=== PATIENT | male | born 1980 | race Caucasian/White ===

== ENCOUNTER → 2016-03-14 | Outpatient (CLI) | payer BC ==
[~2016-03-14] MED LIST: CIPR-255 PO; HYDR-5688 PO; METH10TA6 PO; PRLSR20 PO; PROP1TAB PO
--- NOTE | 2016-03-14 13:12 | DIAGNOSTIC IMAGING REPORT ---
ULTRASOUND RIGHT GROIN NONVASCULAR CLINICAL HISTORY: Right groin pain. COMPARISON STUDY: No priors. FINDINGS: Real-time grayscale sonography of the right groin is performed. There is a small and reducible fat-containing right inguinal hernia. There is no evidence of fluid or bowel within the hernia sac. No inguinal lymphadenopathy is seen. IMPRESSION: There is a small and reducible fat-containing right inguinal hernia. Electronically signed by: German Betancourt M.D. 03/14/2016 1:11 PM Dictated Date/Time: 03/14/2016 1:10 PM
--- NOTE | 2016-03-14 13:13 | DIAGNOSTIC IMAGING REPORT ---
SCROTAL ULTRASOUND CLINICAL HISTORY: Scrotal pain. COMPARISON STUDY: None. TECHNIQUE: Grayscale and color and duplex Doppler sonography of the scrotum was performed. FINDINGS: The right testis measures 4.2 x 2 x 2.7 cm and the left measures 3.8 x 1.7 x 2.5 cm. There is no testicular mass. Color flow within each testis is symmetric. There are small bilateral epididymal head cysts. There was a small left varicocele. There was no evidence of epididymitis. IMPRESSION: 1. No testicular mass. No evidence of testicular torsion. No evidence of epididymitis. 2. Small left varicocele. Electronically signed by: Yaw Kwan M.D. 03/14/2016 1:12 PM Dictated Date/Time: 03/14/2016 1:10 PM
== END | disposition home or self-care (01) ==
LOC: C.ULTRBC 12:22
PROVIDERS: ATTEND Nurse Practitioner Family
DX: R10.31 Right lower quadrant pain (principal); N50.82 Scrotal pain; N50.819 Testicular pain, unspecified

== ENCOUNTER → 2016-03-19 | Outpatient (CLI) | payer BC ==
[2016-03-19 11:44] LABS: THYROID STIMULATING HORMONE < 0.005 uIu/ml (0.300-4.500)
== END | disposition home or self-care (01) ==
LOC: C.LAB1850 09:45
PROVIDERS: ATTEND Internal Medicine Endocrinology, Diabetes & Metabolism
DX: E05.90 Thyrotoxicosis, unspecified without thyrotoxic crisis or storm (principal)

== ENCOUNTER → 2016-04-17 | Outpatient (CLI) | payer BC ==
[2016-04-17 12:39] LABS: THYROID STIMULATING HORMONE < 0.005 uIu/ml (0.300-4.500)
== END | disposition home or self-care (01) ==
LOC: C.LAB1850 11:15
PROVIDERS: ATTEND Internal Medicine Endocrinology, Diabetes & Metabolism
DX: E05.90 Thyrotoxicosis, unspecified without thyrotoxic crisis or storm (principal); E05.00 Thyrotoxicosis with diffuse goiter without thyrotoxic crisis or storm

== ENCOUNTER 2016-07-03 05:13 | Day surgery (SDC) | payer BC ==
[2016-06-18 13:13] VITALS: BMI 43.0
--- NOTE | 2016-06-18 13:41 | PAT Medication Instructions ---
Service Date June 18, 2016. Current Home Medication List Methimazole (Methimazole), 10 MG PO BID Omeprazole (Prilosec), 20 MG PO Q2D Propranolol (Inderal), 120 MG PO QAM Medication Instructions For Your Scheduled Surgery - Take the following medications the morning of surgery with a sip of water OTHERWISE NOTHING TO EAT OR DRINK AFTER MIDNIGHT: Methimazole (Methimazole), 10 MG PO BID Propranolol (Inderal), 120 MG PO QAM Omeprazole (Prilosec), 20 MG PO Q2D - Take the following medications as scheduled the night before surgery: Methimazole (Methimazole), 10 MG PO BID If you have any questions please call us at [phone] or [phone] or [phone]
[2016-06-18 14:50] LABS: BASO % 0.4 %; BASO ABS # 0.02 K/uL (0-0.2); COMPLETE YES; EOS % 3.3 %; HEMATOCRIT 43.8 % (42-52); IG% 0.2 %; LYMPH % 23.3 %; LYMPH ABS # 1.14 K/uL (1.2-3.4); MEAN CELL VOLUME 84.6 fL (80-100); MEAN CORPUSCULAR HEMOGLOBIN 29.3 pg (25-34); MEAN CORPUSCULAR HGB CONC 34.7 g/dl (32-36); MEAN PLATELET VOLUME 9.2 fL (7.4-10.4); MONO % 8.8 %; PLATELET COUNT 192 K/uL (130-400); RED BLOOD COUNT 5.18 M/uL (4.7-6.1); WHITE BLOOD COUNT 4.89 K/uL (4.8-10.8)
[2016-06-18 15:23] LABS: BUN/CREATININE RATIO 11.8 (10-20); CALCIUM 8.9 mg/dl (8.5-10.1); CREATININE 0.94 mg/dl (0.60-1.40); POTASSIUM 4.3 mmol/L (3.5-5.1)
[~2016-07-03] VITALS: Ht 188 cm; Wt 153.1 kg
[~2016-07-03 05:13] MED LIST changes: -CIPR-255 PO; -HYDR-5688 PO
[2016-07-03 05:38] VITALS: BP 143/74; PULSE 90; TEMP 36.6; O2SAT 96; Ht 188 cm; Wt 153.1 kg
[2016-07-03] MEDS ORDERED: CIPROFLOXACIN / D5W 400 MG IV SCH (06:00)
[2016-07-03] MEDS ORDERED: LACTATED RINGER'S 1000ML 1,000 ML IV SCH (06:00)
[2016-07-03] MEDS ORDERED: CEFAZOLIN 2000 MG/60 ML D5W IV SCH (06:00)
[2016-07-03] MEDS ORDERED: LIDOCAINE HCL 2% 2 ML VIAL (20MG/ML) ONE (06:24)
[2016-07-03] MEDS ORDERED: PROPOFOL IV EMULSION 10 MG/ML 20 ML VIAL IV ONE (06:24)
[2016-07-03] MEDS ORDERED: ROCURONIUM BROMIDE 10 MG/ML 5 ML VIAL ONE (06:24)
[2016-07-03] MEDS ORDERED: ONDANSETRON INJ 2 MG/ML 2 ML VIAL ONE ×2 (06:24→08:26)
[2016-07-03] MEDS ORDERED: DEXAMETHASONE SOD INJ 4 MG/ML VIAL ONE (06:24)
[2016-07-03] MEDS ORDERED: NEOSTIGMINE METHYLSULFATE 5 MG/5 ML SYR ONE (06:24)
[2016-07-03] MEDS ORDERED: GLYCOPYRROLATE INJ 0.2 MG/ML VIAL ONE ×2 (06:24→06:51)
[2016-07-03] MEDS ORDERED: MIDAZOLAM HCL 1 MG/ML 2ML VIAL ONE (06:25)
[2016-07-03] MEDS ORDERED: FENTANYL CITRATE INJ 50 MCG/1 ML 2 ML VIAL ONE ×3 (06:25→08:09)
--- NOTE | 2016-07-03 06:33 | History & Physical Bridge Note ---
H&P Re-Evaluation Bridge Note: I have examined the patient, reviewed the History & Physical and in the interval since the performance of the History & Physical I have noted the following changes of clinical significance: No changes noted
[2016-07-03] MEDS ORDERED: BUPIVACAINE/EPINEPHRINE 0.5% MPF 1:200,000 30 ML VIAL ONE (06:39)
[2016-07-03] MEDS ORDERED: SUCCINYLCHOLINE CHLORIDE 20 MG/ML 10 ML VIAL IV ONE (07:21)
[2016-07-03] MEDS ORDERED: PROMETHAZINE HCL INJ 6.25 MG in SODIUM CHLORIDE 0.9% 50ML 50 ML IV PRN (08:00)
[2016-07-03] MEDS ORDERED: ATROPINE SULFATE 0.1 MG/ML 5ML SYR IV PRN (08:00)
[2016-07-03] MEDS ORDERED: ONDANSETRON INJ 2 MG/ML 2 ML VIAL IV PRN ×2 (08:00→08:30)
[2016-07-03] MEDS ORDERED: EpHEDrine SULFATE INJ 50 MG/ML AMP IV PRN (08:00)
--- NOTE | 2016-07-03 08:16 | [facility] Operative Report ---
Operative Report Operative Date July 03, 2016. Pre-Operative Diagnosis Right inguinal hernia Post-Operative Diagnosis direct and indirect RIH Procedure(s) Performed open right inguinal hernia repair with mesh Surgeon Dr Bo Hernandez Assessment Technician Surgeon(s) Shoshana Kulkarni PA-C, Aly Herron PA-C Estimated Blood Loss 10ML Findings large direct and moderated sized indirect RIH Specimens NONE Anesthesia LMA Complication(s) None Disposition Recovery Room / PACU I attest to the content of the Intraoperative Record and any orders documented therein. Any exceptions are noted below.
[2016-07-03] MEDS ORDERED: SODIUM CHLORIDE 0.9% 1000ML 1,000 ML IV SCH (08:26)
[2016-07-03] MEDS ORDERED: HYDR-5688 PO (08:28)
[2016-07-03] MEDS ORDERED: HYDROCODONE/ACETAMOPHEN 5/325MG TAB PO PRN ×2 (08:30)
--- NOTE | 2016-07-03 08:31 | Discharge Instructions ---
Discharge Instructions Date of Service July 03, 2016. Admission Reason for Admission: Right Inguinal Hernia Discharge Discharge Diagnosis / Problem: Right Inguinal Hernia Discharge Goals Goal(s): Decrease discomfort, Improve function Activity Recommendations Activity Limitations: as noted below Lifting Limitations: no more than 10 pounds Exercise/Sports Limitations: until after follow-up appointment May Resume Sexual Activity: after follow-up appointment Shower/Bathe: tomorrow . Instructions / Follow-Up Instructions / Follow-Up Please follow-up with Dr. Hernandez in 1-2 weeks. Please call the office at [phone] to make an appointment if you do not already have one scheduled. Any questions or concerns please call [phone]. Current Hospital Diet Patient's current hospital diet: Discharge Diet Recommended Diet: Regular Diet Procedures Procedures Performed: Right open inguinal hernia repair with mesh Pending Studies Studies pending at discharge: no Medical Emergencies . Who to Call and When: Medical Emergencies: If at any time you feel your situation is an emergency, please call 911 immediately. . Non-Emergent Contact Non-Emergency issues call your: Primary Care Provider, Surgeon Call Non-Emergent contact if: temperature is above 101.5, your pain is not controlled, wound has increased drainage, wound has increased redness . "Provider Documentation" section prepared by Shoshana Hall. . VTE Core Measure Inpt VTE Proph given/why not?: SCD's [place] Drug Monitoring Program Search Results: patient reviewed within database, no issues identified
--- NOTE | 2016-07-03 08:42 | OPERATIVE REPORT ---
DATE OF OPERATION: 07/03/2016 PREOPERATIVE DIAGNOSIS: Right inguinal hernia. POSTOPERATIVE DIAGNOSIS: Direct and indirect right inguinal hernia. PROCEDURE: Open right inguinal hernia repair with mesh. SURGEON: Dr. Bo Hernandez. CAREER AND TECHNOLOGY EDUCATION TEACHER: Shoshana Hall PA-C and Aly Herron PA-C ESTIMATED BLOOD LOSS: Approximately 10 mL. COMPLICATIONS: No immediate. ANESTHESIA: General with laryngeal mask airway. OPERATIVE NOTE: After informed consent was obtained, the patient was taken to the operating suite and placed in the supine position. After successful intubation, a Almaraz catheter was placed and the lower abdomen was shaved and sterilely prepped and draped in the usual fashion. We made an inguinal incision with a 15 blade scalpel and carried this down through the soft tissue using electrocautery. A Weitlaner retractor was used throughout the case to help with exposure. As we went down through Luis A's, we encountered the external oblique aponeurosis. We made an incision in this with a new 15 blade scalpel. Using Metzenbaum scissors, we carried this incision distally through the ring as well as for several centimeters proximally. Once in the inguinal canal, we grabbed the cord and cord structures with a Maksim and gently elevated them and using a blunt finger dissection, I was able to elevate the cord structures off the pubic bone and place a Chaya drain around them. As soon as we gently elevated the cord structures, we noted a rather large direct hernia. It was readily reducible. We then inspected the cord itself. There was a moderate sized indirect hernia sac, which we were able to use primarily blunt dissection with small amounts of electrocautery to tease the sac and sac contents away from the cord structures. This then easily dunked back into the abdominal cavity. To help keep it reduced until we place a mesh, I did use an 0 Nurolon to close the muscle around the internal ring, so that it would keep the sac reduced until we placed the mesh. No other abnormalities were identified. A keyholed polypropylene mesh was used as an onlay. We secured it distally to Feliciano's ligament, laterally along the shelving portion of Poupart's ligament and medially along the midline musculature. The "arms" of the mesh were wrapped around behind the cord and cord structures and secured to underlying muscle. We used 0 Ethibond for all the suturing. It did not appear to impinge on the cord structures. It laid nice and flat and tension free. There was adequate hemostasis. We thoroughly irrigated the wound. Marcaine was injected around the edges of the mesh for postoperative analgesia. We then closed the external oblique aponeurosis with 2-0 Vicryl in a running fashion. Soft tissue was irrigated and closed using 3-0 Vicryl and 4-0 Monocryl for the skin. Some additional Marcaine was injected around the skin incision and Dermabond glue used as a dressing. The patient was awakened, extubated, and transferred to recovery in stable condition. I attest to the content of the Intraoperative Record and any orders documented therein. Any exceptio ns are noted below.
[2016-07-03] MEDS: FENTANYL CITRATE INJ 50 MCG/1 ML 2 ML VIAL IV PRN ×4 (08:47→09:02)
[2016-07-03 09:33] VITALS: BP 127/58; PULSE 96; TEMP 36.6; O2SAT 93
[2016-07-03] MEDS ORDERED: KETOROLAC TROMETHAMINE 30 MG/ML VIAL ONE (09:59)
[2016-07-03 10:00] VITALS: BP 120/57; PULSE 91; O2SAT 93
--- NOTE | 2016-07-03 10:00 | Anesthesiology Progress Note ---
Anesthesia Post Op Note Date & Time July 03, 2016 at 10:00 Vital Signs Pain Intensity: 1 Vital Signs Past 12 Hours Date Time Temp Pulse Resp B/P Pulse Ox O2 Delivery O2 Flow Rate FiO2 07/03/16 09:33 36.6 96 20 127/58 93 Nasal Cannula 2 07/03/16 09:21 125/56 07/03/16 09:18 81 20 96 07/03/16 09:18 81 20 07/03/16 09:16 36.4 97 16 125/56 97 Nasal Cannula 2 07/03/16 09:16 123/64 07/03/16 09:13 69 12 93 07/03/16 09:13 73 12 07/03/16 09:11 122/64 07/03/16 09:08 74 14 07/03/16 09:08 76 14 95 07/03/16 09:06 115/81 07/03/16 09:03 87 16 97 07/03/16 09:03 86 16 07/03/16 09:01 126/76 07/03/16 08:58 77 14 07/03/16 08:58 77 14 96 07/03/16 08:56 129/69 07/03/16 08:53 81 12 07/03/16 08:53 82 12 91 07/03/16 08:52 95 12 07/03/16 08:52 94 12 97 07/03/16 08:51 128/70 07/03/16 08:47 94 11 94 07/03/16 08:47 95 11 07/03/16 08:46 99 10 119/75 94 07/03/16 08:46 99 10 07/03/16 08:41 98 18 137/80 91 07/03/16 08:41 100 18 07/03/16 08:36 105 15 107/85 99 07/03/16 08:36 106 15 07/03/16 08:31 97 22 07/03/16 08:31 97 22 148/83 96 07/03/16 08:26 94 24 142/82 97 07/03/16 08:26 36.1 93 12 142/82 97 Mask 10 07/03/16 08:26 94 24 07/03/16 05:38 36.6 90 18 143/74 96 Room Air Notes Mental Status: alert / awake / arousable, participated in evaluation Pt Amnestic to Procedure: Yes Nausea / Vomiting: adequately controlled Pain: adequately controlled Airway Patency, RR, SpO2: stable & adequate BP & HR: stable & adequate Hydration State: stable & adequate Anesthetic Complications: no major complications apparent
[2016-07-03 10:30] VITALS: BP 130/65; PULSE 95; TEMP 36.5; O2SAT 93
== END 2016-07-03 10:40 | disposition home or self-care (01) ==
LOC: C.ACU 05:13
PROVIDERS: ATTEND Surgery
DX: K40.90 Unilateral inguinal hernia, without obstruction or gangrene, not specified as recurrent (principal); K21.0 Gastro-esophageal reflux disease with esophagitis; M10.9 Gout, unspecified; E05.00 Thyrotoxicosis with diffuse goiter without thyrotoxic crisis or storm; Z82.49 Family history of ischemic heart disease and other diseases of the circulatory system; Z82.3 Family history of stroke; Z79.899 Other long term (current) drug therapy

== ENCOUNTER → 2016-10-08 | Outpatient (CLI) | payer BC ==
[~2016-10-08] MED LIST changes: +HYDR-5688 PO; +OPTIRAY 320 IV PRN
--- NOTE | 2016-10-08 12:03 | DIAGNOSTIC IMAGING REPORT ---
ABD/PELVIS IV AND ORAL CONT HISTORY: 36 years-old Male K40.90 Right inguinal herniaEvaluate post-op RIH repair, post-op . Patient complains of pain near the umbilicus with markers placed on the abdomen at site of pain. COMPARISON: Testicular and abdominal ultrasound 03/14/2016 TECHNIQUE: Multiple axial CT images of the abdomen and pelvis were obtained following administration of 93 mL Optiray 320 IV contrast. Oral contrast was also ministered. IV contrast component of the study was limited secondary to at least 10 mL infiltration within the left antecubital region. geodetic surveyor technologist reportedly gave appropriate instructions to the patient. FINDINGS: The imaged lung bases are clear. There is a small right Bochdalek hernia. There is no pneumoperitoneum. Imaged inferior cardiac chambers are unremarkable. The liver, gallbladder, pancreas and adrenal glands are within normal limits. Spleen is enlarged measuring up to 15 cm in length. The bilateral kidneys, ureters, urinary bladder and prostate are unremarkable. Abdominal aorta is normal in course and caliber. There is no bulky retroperitoneal adenopathy. There is no bowel obstruction. Stool balls noted within the rectal vault. The appendix is partially filled with contrast and air and appears noninflamed. Postsurgical changes are seen within the region of the right inguinal canal compatible with patient history. No evidence of recurrent hernia or postoperative fluid collection. There is only minimal stranding within this region. There is a fat filled periumbilical hernia with diastases of approximately 2 cm. There is minimal induration of the fat within the hernia. No bowel extends into the umbilical hernia site. Morbid obesity is noted. The bones appear intact. Mild endplate spurring is seen most pronounced at T11-T12. IMPRESSION: 1. Evidence of prior right inguinal hernia repair without complication or post-surgical fluid collection. 2. Small fat filled periumbilical hernia with diastases of 2.0 cm is present with mild associated mesenteric fat stranding. No bowel communicates with the hernia site. 3. Mild splenomegaly. The above report was generated using voice recognition software. It may contain grammatical, syntax or spelling errors. Electronically signed by: Orlin Garay M.D. 10/08/2016 12:01 PM Dictated Date/Time: 10/08/2016 11:54 AM
== END | disposition home or self-care (01) ==
LOC: C.CTS 11:08
PROVIDERS: ATTEND Surgery
DX: K40.90 Unilateral inguinal hernia, without obstruction or gangrene, not specified as recurrent (principal)

== ENCOUNTER 2016-11-06 05:11 | Day surgery (SDC) | payer BC ==
[2016-10-27 10:02] VITALS: BMI 42.0
[2016-10-30 12:18] LABS: BASO ABS # 0.05 K/uL (0-0.2); COMPLETE YES; EOS % 2.9 %; HEMATOCRIT 43.6 % (42-52); IG% 0.2 %; LYMPH % 22.2 %; LYMPH ABS # 1.08 K/uL (1.2-3.4); MEAN CELL VOLUME 84.2 fL (80-100); MEAN CORPUSCULAR HEMOGLOBIN 29.9 pg (25-34); MEAN CORPUSCULAR HGB CONC 35.6 g/dl (32-36); MEAN PLATELET VOLUME 9.3 fL (7.4-10.4); MONO % 8.4 %; NEUT % 65.3 %; PLATELET COUNT 201 K/uL (130-400); RED BLOOD COUNT 5.18 M/uL (4.7-6.1); WHITE BLOOD COUNT 4.86 K/uL (4.8-10.8)
[2016-10-30 12:48] LABS: BUN/CREATININE RATIO 13.2 (10-20); CALCIUM 9.5 mg/dl (8.5-10.1); CREATININE 0.75 mg/dl (0.60-1.40); POTASSIUM 3.6 mmol/L (3.5-5.1)
[~2016-11-06] VITALS: Ht 188 cm; Wt 150.0 kg
[~2016-11-06 05:11] MED LIST changes: -HYDR-5688 PO; -OPTIRAY 320 IV PRN
[2016-11-06 05:32] VITALS: BP 132/69; PULSE 79; TEMP 36.5; O2SAT 98; Ht 188 cm; Wt 150.0 kg
[2016-11-06] MEDS ORDERED: CEFAZOLIN 3000 MG/65 ML D5W IV SCH (06:00)
[2016-11-06] MEDS ORDERED: HEPARIN SOD 5000 UNIT/0.5 ML CARP SQ SCH (06:00)
[2016-11-06] MEDS ORDERED: LACTATED RINGER'S 1000ML 1,000 ML IV SCH (06:00)
[2016-11-06] MEDS ORDERED: BUPIVACAINE/EPINEPHRINE 0.5% MPF 1:200,000 30 ML VIAL ONE (06:41)
[2016-11-06] MEDS ORDERED: PROPOFOL IV EMULSION 10 MG/ML 20 ML VIAL IV ONE ×2 (06:46→08:03)
[2016-11-06] MEDS ORDERED: ROCURONIUM BROMIDE 10 MG/ML 5 ML VIAL IV ONE (06:46)
[2016-11-06] MEDS ORDERED: LIDOCAINE HCL 2% 2 ML VIAL (20MG/ML) ONE (06:46)
[2016-11-06] MEDS ORDERED: MIDAZOLAM HCL 1 MG/ML 2ML VIAL ONE (06:47)
[2016-11-06] MEDS ORDERED: FENTANYL CITRATE INJ 50 MCG/1 ML 2 ML VIAL ONE ×2 (06:47→07:33)
[2016-11-06] MEDS ORDERED: ATROPINE SULFATE 0.1 MG/ML 5ML SYR IV PRN (07:15)
[2016-11-06] MEDS ORDERED: EpHEDrine SULFATE INJ 50 MG/ML AMP IV PRN (07:15)
[2016-11-06] MEDS ORDERED: HYDROmorphone INJ 2 MG/ML SYR/VIAL IV PRN (07:15)
[2016-11-06] MEDS ORDERED: PHENYLEPHRINE 100MCG/ML 5ML SYR IV PRN (07:15)
[2016-11-06] MEDS ORDERED: ONDANSETRON INJ 2 MG/ML 2 ML VIAL IV PRN ×2 (07:15→08:30)
[2016-11-06] MEDS ORDERED: ONDANSETRON INJ 2 MG/ML 2 ML VIAL ONE (07:48)
[2016-11-06] MEDS ORDERED: NEOSTIGMINE METHYLSULFATE 5 MG/5 ML SYR ONE (07:48)
[2016-11-06] MEDS ORDERED: GLYCOPYRROLATE INJ 0.2 MG/ML VIAL ONE ×2 (07:48→08:03)
--- NOTE | 2016-11-06 08:15 | [facility] Operative Report ---
Operative Report Operative Date Nov 06, 2016. Pre-Operative Diagnosis Umbilical Hernia and abdominal pain Post-Operative Diagnosis incarcerated umbilical/ventral hernia;normal laparoscopy Procedure(s) Performed Diagnostic Laparoscopy; Open Umbilical Hernia Repair Surgeon Dr. Hernandez Board Member Surgeon(s) Shoshana Hall PA-C Estimated Blood Loss 5 ml Findings 1.5 cm incarcerated umbilical hernia;normal laparoscopy Specimens NONE per surgeon Anesthesia get Complication(s) None Disposition Recovery Room / PACU Description of Procedure After informed consent was obtained the patient was taken to the operating room and placed in supine position. After successful intubation the abdomen was shaved and sterilely prepped and draped in usual fashion. We used a 15 blade scalpel to make a curvilinear infraumbilical incision and carried this down through the soft tissue. We immediately noted a moderate size hernia sac. It was actually more infraumbilical than truly umbilical regarding the hernia. We were able to dissect the sac down to its base with discrete fascial edges without removing the umbilical stalk. I opened the sac and there was a fair amount of omentum incarcerated and twisted within the hernia likely causing his pain. I was able to fully excise the sac and discarded it. I was then able to easily reduce the omentum leaving a discrete 1-1/2 cm defect. I placed 0 Vicryl stay sutures and inserted a 12 mm Barrios trocar. We insufflated the abdomen to 20 mmHg and I inserted the laparoscope. The anatomy was normal. His prior right hernia repair looked good. There were no adhesions etc. I saw no other hernias. Small /large bowel gallbladder liver stomach etc. all looked normal as well. Once I was satisfied I removed the camera as well as the port. We then removed the stay sutures and freshened up the fascial edges. I then used 0 Ethibond in interrupted [id number] fashion to primarily close the defect. Because it was less than 2 cm I opted to not use mesh. I thoroughly irrigated the wound and then closed in multiple layers using 2-0 Vicryl for deep layers 3-0 Vicryl for mid layers and 4-0 Monocryl for skin. Marcaine was injected around the area for postoperative analgesia and skin glue used as a dressing. Patient was awakened extubated and transferred recovery in stable condition I attest to the content of the Intraoperative Record and any orders documented therein. Any exceptions are noted below.
[2016-11-06] MEDS ORDERED: SODIUM CHLORIDE 0.9% 1000ML 1,000 ML IV SCH (08:22)
[2016-11-06] MEDS ORDERED: HYDR-5688 PO (08:23)
--- NOTE | 2016-11-06 08:26 | Discharge Instructions ---
Discharge Instructions Date of Service Nov 06, 2016. Admission Reason for Admission: Umbilical Hernia, Abdominal Pain Discharge Discharge Diagnosis / Problem: Umiblical Hernia, Abdominal Pain Discharge Goals Goal(s): Decrease discomfort, Improve function Activity Recommendations Activity Limitations: as noted below Lifting Limitations: no more than 10 pounds Exercise/Sports Limitations: until after follow-up appointment May Resume Sexual Activity: after follow-up appointment Shower/Bathe: tomorrow Driving or Machine Use: resume 1 day after discharge . Instructions / Follow-Up Instructions / Follow-Up Please follow-up with Dr. Hernandez in the office in 1-2 weeks. Please call the office at [phone] to make an appointment if you do not have one already. Please call the office with any questions or concerns. Current Hospital Diet Patient's current hospital diet: Discharge Diet Recommended Diet: Regular Diet Procedures Procedures Performed: Diagnostic Laparoscopy; Open Umbilical Hernia Repair Pending Studies Studies pending at discharge: no Medical Emergencies . Who to Call and When: Medical Emergencies: If at any time you feel your situation is an emergency, please call 911 immediately. . Non-Emergent Contact Non-Emergency issues call your: Primary Care Provider, Surgeon Call Non-Emergent contact if: temperature is above 101.5, your pain is not controlled, wound has increased drainage, wound has increased redness . "Provider Documentation" section prepared by Shoshana Hall. . VTE Core Measure Inpt VTE Proph given/why not?: Unfractionated heparin SQ, SCD's [place] Drug Monitoring Program Search Results: patient reviewed within database, no issues identified
[2016-11-06] MEDS ORDERED: HYDROmorphone INJ 1 MG/ML SYR ONE ×2 (08:29→08:38)
[2016-11-06] MEDS ORDERED: HYDROCODONE/ACETAMOPHEN 5/325MG TAB PO PRN ×2 (08:30)
[2016-11-06] MEDS ORDERED: KETOROLAC TROMETHAMINE 30 MG/ML VIAL ONE (09:00)
[2016-11-06 09:10] VITALS: BP 125/68; PULSE 72; TEMP 36.4; O2SAT 98
[2016-11-06 09:40] VITALS: BP 120/73; PULSE 75; O2SAT 98
--- NOTE | 2016-11-06 10:04 | Anesthesiology Progress Note ---
Anesthesia Post Op Note Date & Time Nov 06, 2016 at 10:04 Vital Signs Pain Intensity: 4.0 Vital Signs Past 12 Hours Date Time Temp Pulse Resp B/P (MAP) Pulse Ox O2 Delivery O2 Flow Rate FiO2 11/06/16 09:10 36.4 72 16 125/68 98 Room Air 11/06/16 09:00 36.2 86 16 112/68 99 Nasal Cannula 2 11/06/16 08:50 80 16 123/87 97 Nasal Cannula 2 11/06/16 08:40 81 16 116/77 97 Nasal Cannula 2 11/06/16 08:30 81 18 119/72 97 Oxymask 5 11/06/16 08:21 36.0 95 24 121/81 99 Oxymask 5 11/06/16 05:32 36.5 79 18 132/69 (90) 98 Room Air Notes Mental Status: alert / awake / arousable, participated in evaluation Pt Amnestic to Procedure: Yes Nausea / Vomiting: adequately controlled Pain: adequately controlled Airway Patency, RR, SpO2: stable & adequate BP & HR: stable & adequate Hydration State: stable & adequate Anesthetic Complications: no major complications apparent
[2016-11-06 10:10] VITALS: BP 160/55; PULSE 72; TEMP 36.5; O2SAT 93
== END 2016-11-06 10:17 | disposition home or self-care (01) ==
LOC: C.ACU 05:11
PROVIDERS: ATTEND Surgery
DX: K42.0 Umbilical hernia with obstruction, without gangrene (principal); K43.6 Other and unspecified ventral hernia with obstruction, without gangrene; K21.9 Gastro-esophageal reflux disease without esophagitis; E66.9 Obesity, unspecified; E05.00 Thyrotoxicosis with diffuse goiter without thyrotoxic crisis or storm; Z82.49 Family history of ischemic heart disease and other diseases of the circulatory system; Z82.3 Family history of stroke